=== PATIENT | male | born 1960 | race Caucasian/White ===

== ENCOUNTER 2017-12-31 06:29 | Day surgery (SDC) | payer BC ==
[~2017-12-31 06:29] MED LIST: ASPIRIN81 MG PO; BACTRIM DS1 TAB OR; INDOCIN25 MG PO; LIPITOR10 M1 PO; LISINOPRIL10 MG PO; METFORMIN500 MG PO; MITIGARE0.6 MG PO; OMEPRAZOLE20 M2 PO; SYNTHROID175 MCG PO
[2017-12-31 08:52] VITALS: BP 133/62
== END 2017-12-31 08:32 | disposition home or self-care (01) | DRG 392 ==
LOC: ENDO 06:29 → ORM 09:00
PROVIDERS: ATTEND Surgery
PROC: 0DJ08ZZ Inspection of Upper Intestinal Tract, Via Natural or Artificial Opening Endoscopic (ICD-10-PCS; principal; 2017-12-31)
DX: K29.70 Gastritis, unspecified, without bleeding (principal); I10 Essential (primary) hypertension; E11.9 Type 2 diabetes mellitus without complications; Z87.11 Personal history of peptic ulcer disease; Z79.899 Other long term (current) drug therapy

== ENCOUNTER → 2018-05-08 | Outpatient (REF) | END | disposition home or self-care (01) | DRG 645 | LOC: LAB 07:43 | PROVIDERS: ATTEND Nurse Practitioner Adult Health | DX: E03.8 Other specified hypothyroidism (principal); E11.69 Type 2 diabetes mellitus with other specified complication; I10 Essential (primary) hypertension ==